=== PATIENT | female | born 1965 | race Caucasian/White ===

== ENCOUNTER 2022-09-01 11:01 | Outpatient (RCR) | payer BC, SELFPAY | END 2023-02-28 23:59 | disposition home or self-care (01) | LOC: CCIC 11:01 | PROVIDERS: Visit Provider Internal Medicine Hematology & Oncology | DX: C50.912 Malignant neoplasm of unspecified site of left female breast (principal); Z17.0 Estrogen receptor positive status [ER+] | CPT/HCPCS: 99202; 99205 ==